=== PATIENT | male | born 1970 | race Caucasian/White ===

== ENCOUNTER 2017-08-04 10:04 | Inpatient (IN) | payer BC ==
[~2017-08-04] VITALS: Ht 180.3 cm; Wt 112.4 kg
[2017-08-04 12:03] LABS: HEMATOCRIT 41.2 % (38.0-50.0); HEMOGLOBIN 14.5 G/DL (12.5-16.6); MCH 31.9 PG (29.0-34.0); MCHC 35.2 G/DL (30.0-36.0); MCV 90.5 FL (86-99); PLATELET COUNT 310 K/uL (156-360); RBC DIS.WIDTH-CV 12.2 % (11.8-14.6); RBC DIS.WIDTH-SD 40.2 % (39-53); RED BLOOD COUNT 4.55 M/uL (4.00-5.50); WHITE BLOOD COUNT 8.7 K/uL (4.1-10.2)
[2017-08-04 12:16] LABS: ALBUMIN 3.9 g/dL (3.2-4.8); CHLORIDE 100 mEq/L (99-109); POTASSIUM 4.9 mEq/L (3.7-5.4); SODIUM 136 mEq/L (136-147)
[2017-08-04 12:19] LABS: TOTAL PROTEIN 6.9 g/dL (6.4-8.3)
[2017-08-04 12:20] LABS: GLUCOSE 408 mg/dL (70-99); TOTAL BILIRUBIN 0.8 mg/dL (0.0-1.0)
[2017-08-04 12:22] LABS: ALKALINE PHOSPHATASE 86 IU/L (3-129); CREATININE 1.2 mg/dL (0.6-1.3); GFR ESTIMATE (CALCULATED) > 59 mL/min/ (58.99-99999)
[2017-08-04 12:23] LABS: UREA NITROGEN (BUN) 12 mg/dL (9-23)
[2017-08-04 12:24] LABS: AST (GOT) 15 IU/L (2-34)
[2017-08-04 12:25] LABS: ALT (GPT) 16 IU/L (3-49)
[2017-08-04 12:48] LABS: C-REACTIVE PROTEIN 44.1 MG/L (0-10)
[2017-08-04] MEDS ORDERED: LANTUS 3 M100 UNITS1 SC (14:08)
[2017-08-04] MEDS ORDERED: HUMALOG100 UNIT/1 SC (14:08)
[2017-08-04 16:00] VITALS: BP 140/85
[2017-08-04 20:20] VITALS: BP 145/78
[2017-08-05] VITALS: BP 142/86
[2017-08-05 04:00] VITALS: BP 132/78
[2017-08-05 05:18] LABS: APPEARANCE CLEAR ((CLEAR)); BILIRUBIN NEGATIVE; BLOOD NEGATIVE; COLOR YELLOW ((YELLOW)); GLUCOSE (STRIP) >=500; KETONES 20; LEUKOCYTES NEGATIVE; NITRITE NEGATIVE; PROTEIN (STRIP) NEGATIVE; SPECIFIC GRAVITY 1.012 (1.000-1.030); UCUL ADDED? NO; UROBILINOGEN 0.2 MG/DL (0.2-1.0)
[2017-08-05 06:40] LABS: HEMATOCRIT 39.7 % (38.0-50.0); HEMOGLOBIN 13.6 G/DL (12.5-16.6); MCH 31.1 PG (29.0-34.0); MCHC 34.3 G/DL (30.0-36.0); MCV 90.6 FL (86-99); PLATELET COUNT 339 K/uL (156-360); RBC DIS.WIDTH-CV 12.1 % (11.8-14.6); RBC DIS.WIDTH-SD 40.1 % (39-53); RED BLOOD COUNT 4.38 M/uL (4.00-5.50); WHITE BLOOD COUNT 8.2 K/uL (4.1-10.2)
[2017-08-05 07:09] LABS: CHLORIDE 105 MEQ/L (99-109); HDL CHOLESTEROL 36 MG/DL (Desirable>=40); LDL CHOLESTEROL 38 mg/dL (Desirable<100); NON-HDL CHOLESTEROL 65 mg/dL (Desirable<160); SODIUM 140 MEQ/L (136-147); TOTAL CHOLESTEROL 101 mg/dL (Desirable<200); TRIGLYCERIDES 135 MG/DL (Normal: <150); UREA NITROGEN (BUN) 15 mg/dL (9-23)
[2017-08-05 07:18] LABS: CREATININE 0.7 MG/DL (0.6-1.3); GFR ESTIMATE (CALCULATED) > 59 mL/min/ (58.99-99999); GLUCOSE 169 mg/dL (70-99); POTASSIUM 3.9 MEQ/L (3.7-5.4)
[2017-08-05 07:47] LABS: Estimated Average Glucose 197 mg/dL (70-123); HEMOGLOBIN A1c (GLYCOHEMOGLOB) 8.5 % HGB (Below 5.7)
[2017-08-05 07:50] VITALS: BP 138/68
[2017-08-05 12:54] VITALS: BP 140/88
[2017-08-05 15:24] VITALS: BP 132/78
[2017-08-05 21:00] VITALS: BP 125/75
[2017-08-06 00:13] VITALS: BP 131/82
[2017-08-06 04:00] VITALS: BP 115/75
[2017-08-06 08:22] VITALS: BP 129/76
[2017-08-06 16:33] VITALS: BP 130/78
[2017-08-06 23:40] VITALS: BP 132/69
[2017-08-07 08:14] VITALS: BP 161/88
[2017-08-07 14:07] VITALS: BP 129/62
[2017-08-07 17:03] VITALS: BP 159/82
[2017-08-07 19:50] VITALS: BP 138/81
[2017-08-07 23:55] VITALS: BP 116/74
[2017-08-08 03:46] VITALS: BP 122/74
[2017-08-08 07:18] LABS: HEMATOCRIT 40.5 % (38.0-50.0); HEMOGLOBIN 13.9 G/DL (12.5-16.6); MCHC 34.3 G/DL (30.0-36.0); MCV 90.4 FL (86-99); PLATELET COUNT 334 K/uL (156-360); RBC DIS.WIDTH-CV 11.9 % (11.8-14.6); RBC DIS.WIDTH-SD 39.5 % (39-53); RED BLOOD COUNT 4.48 M/uL (4.00-5.50); WHITE BLOOD COUNT 9.5 K/uL (4.1-10.2)
[2017-08-08 08:00] VITALS: BP 126/75
[2017-08-08] MEDS ORDERED: TRAMADOL HCL50 MG PO (11:00)
[2017-08-08] MEDS ORDERED: KEFLEX500 MG PO (11:00)
[2017-08-08 12:34] VITALS: BP 134/77
== END 2017-08-08 17:00 | disposition home or self-care (01) | DRG 617 ==
LOC: EME 10:04 → ENRESERV 13:05 → 4SOUTH 13:07 → EDOF 13:07 → ENRESERV 14:28 → 4SOUTH 15:45
PROVIDERS: Internal Medicine; Nurse Practitioner Family; Podiatrist Foot & Ankle Surgery
PROC: 0Y6V0Z0 Detachment at Right 4th Toe, Complete, Open Approach (ICD-10-PCS; principal; 2017-08-07)
DX: E10.69 Type 1 diabetes mellitus with other specified complication (principal); M86.171 Other acute osteomyelitis, right ankle and foot; E10.65 Type 1 diabetes mellitus with hyperglycemia; E10.628 Type 1 diabetes mellitus with other skin complications; L03.031 Cellulitis of right toe; L03.115 Cellulitis of right lower limb; B95.1 Streptococcus, group B, as the cause of diseases classified elsewhere; E10.42 Type 1 diabetes mellitus with diabetic polyneuropathy; E66.9 Obesity, unspecified; E10.51 Type 1 diabetes mellitus with diabetic peripheral angiopathy without gangrene; Z79.4 Long term (current) use of insulin; Z68.34 Body mass index [BMI] 34.0-34.9, adult
CPT/HCPCS: 73630; 80048; 80053; 80061; 81003; 82948; 83036; 85027; 86140; 87040; 87070; 87075; 87077; 87186; 87205; 88305; 88311; 93005; 99281; 99285; J0690; J1100; J1170; J1650; J1815; J2250; J2405; J3010; J3370; J7030; J7040; S0020